=== PATIENT | female | born 1985 | race Caucasian/White ===

== ENCOUNTER → 2018-06-22 | Outpatient (CLI) | payer BC, MEDICARE, OTHER | END | disposition home or self-care (01) | LOC: LABWHC1 09:30 | PROVIDERS: ATTEND Internal Medicine Critical Care Medicine | DX: J45.909 Unspecified asthma, uncomplicated (principal) | CPT/HCPCS: 36415; 82785; 85008 ==

== ENCOUNTER → 2018-06-22 | Outpatient (CLI) | payer BC, MEDICARE, OTHER ==
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
== END | disposition home or self-care (01) ==
LOC: RADXRMAIN 09:54
PROVIDERS: ATTEND Family Medicine
DX: M54.5 Low back pain (principal)
CPT/HCPCS: 72100

== ENCOUNTER → 2018-08-24 | Outpatient (CLI) | payer BC, MEDICARE, OTHER ==
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
--- NOTE | 2018-08-24 10:58 | XR ---
EXAMINATION TYPE: XR thoracic spine complete, 4 views DATE OF EXAM: 08/24/2018 Comparison: None Clinical History: 32-year-old female with chronic pain R52 Findings: 12 rib-bearing thoracic vertebral bodies. All pedicles are visualized. Very mild endplate spondylosis midthoracic spine. Vertebral body heights are preserved and alignment is maintained. Impression: Very mild endplate spondylosis midthoracic spine. No vertebral compression collapse or malalignment.
== END | disposition home or self-care (01) ==
LOC: RADXRMAIN 09:47
PROVIDERS: ATTEND Family Medicine
DX: M47.814 Spondylosis without myelopathy or radiculopathy, thoracic region (principal); M46.82 Other specified inflammatory spondylopathies, cervical region; G89.29 Other chronic pain
CPT/HCPCS: 72050; 72072

== ENCOUNTER → 2019-10-07 | Outpatient (CLI) | payer BC, MEDICARE, OTHER ==
--- NOTE | 2019-10-07 17:12 | CT ---
EXAMINATION TYPE: CT soft tissue neck w con DATE OF EXAM: 10/07/2019 2:46 PM COMPARISON: None HISTORY: Left sided swelling marked by BB with ear pain CT DLP: 745.2 mGycm Automated exposure control for dose reduction was used. CONTRAST: CT scan of the neck is performed following with IV Contrast, patient injected with 100 mL of Isovue 3 00. Axial images are obtained, coronal and sagittal reformatted images are reviewed. FINDINGS: At the site of patient's clinical abnormality there is an overlying BB. Airway: No gross abnormality seen. Parotid/submandibular glands: No gross abnormality seen. Carotid/Vascular Structures: Osseous Structures: Other: Shotty lymph nodes are present within the bilateral neck, at the site of patient's palpable ab normality deep to the sternocleidomastoid muscle posterior aspect there is some small nodes present IMPRESSION: Nonenlarged, benign-appearing lymph nodes correspond to the palpable abnormality.
== END | disposition home or self-care (01) ==
LOC: RADCTMAIN 14:20
PROVIDERS: ATTEND Otolaryngology
DX: R22.1 Localized swelling, mass and lump, neck (principal)
CPT/HCPCS: 70491; Q9967

== ENCOUNTER → 2020-05-29 | Outpatient (CLI) | payer BC, MEDICARE, OTHER ==
--- NOTE | 2020-05-29 08:15 | CT ---
EXAMINATION TYPE: CT sinus wo con DATE OF EXAM: 05/29/2020 COMPARISON: 10/07/2019 HISTORY: Facial and Left ear pain CT DLP: 514.1 mGycm. Automated Exposure Control for Dose Reduction was Utilized. TECHNIQUE: CT scan of the sinuses is performed without contrast, axial images are obtained, coronal r eformatted images are also reviewed. FINDINGS: The paranasal sinuses including the frontal, ethmoid, sphenoid, and maxillary sinuses bila terally are well-aerated without abnormal opacification. Hypoplastic frontal sinus noted. The ostiom eatal complex is patent bilaterally on the coronal images. Visualized portion of mastoid air cells show no abnormal opacification. The globes are intact bilate rally. IMPRESSION: The sinuses are clear and the ostiomeatal complex is patent bilaterally.
== END | disposition home or self-care (01) ==
LOC: RADCTMAIN 07:16
PROVIDERS: ATTEND Otolaryngology
DX: J32.9 Chronic sinusitis, unspecified (principal)
CPT/HCPCS: 70486

== ENCOUNTER → 2020-05-31 | Outpatient (CLI) | payer BC, MEDICARE, OTHER ==
--- NOTE | 2020-06-03 08:09 | CT ---
EXAMINATION TYPE: CT iac w con DATE OF EXAM: 05/31/2020 COMPARISON: None HISTORY: Mastoiditis. Pt c/o reoccurring ear infections CT DLP: 142.7 mGycm Automated exposure control for dose reduction was used. CONTRAST: CT scan of the IACs is performed with IV Contrast, patient injected with 100 mL of Isovue 300. FINDINGS: The external auditory canals are patent bilaterally. Mastoid air cells show no evidence of abnormal opacification bilaterally. The middle ear ossicles are symmetric and unremarkable. There is no evidence of suspicious surrounding soft tissue density to suggest cholesteatoma. The scutum is preserved bilaterally. The cochlea and the semicircular canals are symmetric and unremarkable. Ves tibular aqueduct and internal carotid canal appear unremarkable. Temporomandibular joints are mainta ined bilaterally. IMPRESSION: No significant abnormality seen to account for patient's symptoms.
== END | disposition home or self-care (01) ==
LOC: RADCTMAIN 15:26
PROVIDERS: ATTEND Otolaryngology
DX: H70.90 Unspecified mastoiditis, unspecified ear (principal); H92.02 Otalgia, left ear
CPT/HCPCS: 70481; Q9967

== ENCOUNTER → 2021-06-04 | Outpatient (CLI) | payer BC, MEDICARE, OTHER ==
--- NOTE | 2021-06-04 14:37 | CT ---
EXAMINATION TYPE: CT chest wo con DATE OF EXAM: 06/04/2021 COMPARISON: Prior chest CT August 24, 2013 HISTORY: SOB and cough, hx of asthma. CT DLP: 367.5 mGycm. Automated Exposure Control for Dose Reduction was Utilized. TECHNIQUE: CT scan of the thorax is performed without IV contrast. FINDINGS: LUNGS: The lungs remain grossly clear, there is no concerning parenchymal mass or nodule identified. There is no pleural effusion or pneumothorax seen. The tracheobronchial tree is patent. MEDIASTINUM: Lack of IV contrast is noted to limit evaluation for mediastinal and especially hilar ad enopathy. There are no definitive greater than 1 cm mediastinal lymph nodes. No cardiomegaly or pericardial effusion is seen. OTHER: Cholecystectomy clips are identified.. IMPRESSION: No acute or chronic pulmonary process.
== END | disposition home or self-care (01) ==
LOC: RADCTMAIN 14:01
PROVIDERS: ATTEND Internal Medicine Pulmonary Disease
DX: R06.02 Shortness of breath (principal); R05 Cough; Z87.09 Personal history of other diseases of the respiratory system
CPT/HCPCS: 71250

== ENCOUNTER → 2021-08-08 | Outpatient (CLI) | payer BC, MEDICARE, OTHER ==
--- NOTE | 2021-08-09 05:50 | MR ---
EXAMINATION TYPE: MR shoulder LT wo con DATE OF EXAM: 08/08/2021 COMPARISON: None HISTORY: Left shoulder pain and limited range of movement since 2014 Multiplanar multiecho imaging of the left shoulder without contrast. The biceps tendon is intact. Subscapularis tendon is intact. The glenoid janay appear intact. Exam li mited by patient's size and motion. The AC joint is intact. There is no significant subacromial impingement. The supraspinatus tendon wes ears intact. There is no retraction. There is no significant subacromial impingement. IMPRESSION: Negative MR scan of the left shoulder within the limitations of the exam. No evidence of rotator cuff tear.
== END | disposition home or self-care (01) ==
LOC: RADMRIMAIN 15:25
PROVIDERS: ATTEND Orthopaedic Surgery Hand Surgery
DX: M25.512 Pain in left shoulder (principal)

== ENCOUNTER → 2021-09-30 | Outpatient (CLI) | payer BC, MEDICARE, OTHER ==
--- NOTE | 2021-09-30 16:29 | CT ---
EXAMINATION TYPE: CT chest wo con DATE OF EXAM: 09/30/2021 COMPARISON: Chest CT June 04, 2021. HISTORY: Chest pain and difficulty breathing post covid. CT DLP: 399.6 mGycm. Automated Exposure Control for Dose Reduction was Utilized. TECHNIQUE: CT scan of the thorax is performed without IV contrast. FINDINGS: LUNGS: The lungs are grossly clear, there is no concerning new focal consolidation or groundglass opa city. There is no pleural effusion or pneumothorax seen. The tracheobronchial tree is patent. No n ew significant fibrotic change. MEDIASTINUM: Lack of IV contrast is noted to limit evaluation for mediastinal and especially hilar ad enopathy. There are no definitive new greater than 1 cm mediastinal lymph nodes. No cardiomegaly or pericardial effusion is seen. OTHER: Cholecystectomy clips are redemonstrated. Underlying scoliotic curvature or positioning is pre sent. IMPRESSION: No significant new acute or chronic pulmonary process. No significant change from prior C T.
== END | disposition home or self-care (01) ==
LOC: RADCTMAIN 16:05
PROVIDERS: ATTEND Internal Medicine Pulmonary Disease
DX: U09.9 Post COVID-19 condition, unspecified (principal)
CPT/HCPCS: 71250

== ENCOUNTER → 2023-09-09 | Outpatient (CLI) | payer MEDICARE, OTHER ==
--- NOTE | 2023-09-10 10:17 | CA ---
Transthoracic Echo Report Name: Bri Díaz Age: 37 Gender: F : 1985 Exam Date: 09/09/2023 14:40 Exam Location: [facility] Ht (in): 65 Wt (lb): 245 Ordering Physician: Jesús Fernandez MD Attending/Referring Phys: Outside Sales Consultant Linda Holcomb RDCS Procedure CPT: Indications: R06.00 Cardiac Hx: Technical Quality: Fair Contrast 1: Total Dose (mL): Contrast 2: Total Dose (mL): MEASUREMENTS (Male / Female) Normal Values 2D ECHO LV Diastolic Diameter PLAX 4.8 cm 4.2 - 5.9 / 3.9 - 5.3 cm LV Systolic Diameter PLAX 3.0 cm IVS Diastolic Thickness 1.3 cm 0.6 - 1.0 / 0.6 - 0.9 cm LVPW Diastolic Thickness 1.0 cm 0.6 - 1.0 / 0.6 - 0.9 cm LV Relative Wall Thickness 0.5 RV Internal Dim ED PLAX 2.9 cm LA Systolic Diameter LX 4.2 cm 3.0 - 4.0 / 2.7 - 3.8 cm LA Volume 60.9 cm??? 18 - 58 / 22 - 52 cm??? LA Volume Index 26.3 cm???/m??? 16 - 28 cm???/m??? M-MODE Aortic Root Diameter MM 2.7 cm MV E Point Septal Separation 0.6 cm DOPPLER AV Peak Velocity 163.0 cm/s AV Peak Gradient 10.6 mmHg MV Area PHT 4.1 cm??? Mitral E Point Velocity 138.6 cm/s Mitral A Point Velocity 86.9 cm/s Mitral E to A Ratio 1.6 MV Deceleration Time 184.7 ms MV E' Velocity 8.4 cm/s Mitral E to MV E' Ratio 16.6 TR Peak Velocity 288.0 cm/s TR Peak Gradient 33.2 mmHg Right Ventricular Systolic Press 38.2 mmHg FINDINGS Left Ventricle Left ventricular ejection fraction is estimated at 55-60 %. Left ventricular cavity size normal. Mildly increased septal wall thickness. Normal left ventricular wall motion. Right Ventricle Normal right ventricular size. Mild pulmonary hypertension. Right Atrium Normal right atrial size. Left Atrium Mildly increased left atrial diameter. Mildly increased left atrial volume. Mitral Valve Structurally normal mitral valve. Trace mitral regurgitation. Aortic Valve Trileaflet aortic valve. No aortic valve stenosis or regurgitation. Tricuspid Valve Structurally normal tricuspid valve. Trace to mild tricuspid regurgitation. Pulmonic Valve Structurally normal pulmonic valve. No pulmonic regurgitation. Pericardium No pericardial effusion. Aorta Normal size aortic root and proximal ascending aorta. CONCLUSIONS 1. Normal left ventricular size and systolic function 2. Trace to mild tricuspid regurgitation with mild pulmonary hypertension 3. Trace mitral regurgitation Previewed by: Dr. Ani Barrett MD (Electronically Signed) Final Date: 10 September 2023 10:16
== END | disposition home or self-care (01) ==
LOC: RADECHMAIN 14:38
PROVIDERS: ATTEND Internal Medicine
DX: I08.1 Rheumatic disorders of both mitral and tricuspid valves (principal); I27.20 Pulmonary hypertension, unspecified; R06.00 Dyspnea, unspecified
CPT/HCPCS: 93306

== ENCOUNTER → 2024-02-24 | Outpatient (CLI) | payer MEDICARE, OTHER ==
--- NOTE | 2024-02-25 10:19 | US ---
EXAMINATION TYPE: US venous doppler duplex UE RT DATE OF EXAM: 02/24/2024 COMPARISON: NONE CLINICAL INDICATION: Female, 38 years old with history of S43.431A SUPERIOR GLENOID LABRUM LESION-RUE ; Pain edema patient having surgery next week on surgery. SIDE PERFORMED: Right Limited due to some edema. Grayscale, color doppler, spectral doppler imaging performed of the deep veins of the upper extremiti es. There is normal flow, compressibility and vascular waveforms. Impression: No evidence of right upper extremity DVT.
== END | disposition home or self-care (01) ==
LOC: RADUSWWP 16:21
PROVIDERS: ATTEND Orthopaedic Surgery Sports Medicine
DX: S43.431A Superior glenoid labrum lesion of right shoulder, initial encounter (principal); R22.31 Localized swelling, mass and lump, right upper limb; X58.XXXA Exposure to other specified factors, initial encounter

== ENCOUNTER → 2024-07-25 | Outpatient (CLI) | payer MEDICARE, OTHER | LOC: CPPFTMAIN 12:53 | PROVIDERS: ATTEND Family Medicine | DX: J44.9 Chronic obstructive pulmonary disease, unspecified (principal); Z88.8 Allergy status to other drugs, medicaments and biological substances; Z88.1 Allergy status to other antibiotic agents; Z79.899 Other long term (current) drug therapy | CPT/HCPCS: 94060; 94726; 94729 ==

== ENCOUNTER → 2024-10-16 | Outpatient (CLI) | payer MEDICARE, OTHER ==
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
== END | disposition home or self-care (01) ==
LOC: RADCTMAIN 12:54
PROVIDERS: ATTEND Otolaryngology
DX: R22.1 Localized swelling, mass and lump, neck (principal)
CPT/HCPCS: 70491; Q9967

== ENCOUNTER → 2024-11-24 | Outpatient (CLI) | payer MEDICARE, OTHER ==
[2024-11-24 15:52] LABS: ALT 48 U/L (8-44); AST 20 U/L (13-35); Albumin 4.6 g/dL (3.8-4.9); Albumin/Globulin Ratio 1.44 Ratio (1.60-3.17); Alkaline Phosphatase 61 U/L (41-126); Blood Urea Nitrogen 7.6 mg/dL (9.0-27.0); Carbon Dioxide 22.8 mmol/L (21.6-31.8); Chloride 100 mmol/L (96-109); Chol/HDL Ratio 5.87 Ratio; Globulin 3.2 g/dL (1.6-3.3); Glucose 103 mg/dL (70-110); LDL Cholesterol,Calculated 221.2 mg/dL (0.0-131.0); Potassium 3.7 mmol/L (3.5-5.5); Sodium 139 mmol/L (135-145); Total Bilirubin 0.3 mg/dL (0.3-1.2); Total Protein 7.8 g/dL (6.2-8.2)
[2024-11-24 19:09] LABS: Basophils # (A) 0.06 X 10*3/uL (0.00-0.10); Basophils % (A) 0.6 %; Eosinophils # (A) 0.09 X 10*3/uL (0.04-0.35); Eosinophils % (A) 0.9 %; HCT 42.3 % (37.2-46.3); HGB 13.7 g/dL (12.0-15.0); Lymphocytes # (A) 2.79 X 10*3/uL (0.90-5.00); Lymphocytes % (A) 28.8 %; MCH 28.7 pg (27.0-32.0); MCHC 32.4 g/dL (32.0-37.0); MCV 88.7 FL (80.0-97.0); Mean Platelet Volume 11.7 FL (9.5-12.2); Monocytes # (A) 0.66 X 10*3/uL (0.20-1.00); Monocytes % (A) 6.8 %; NRBC Per 100 WBC 0 X 10*3/uL (0.00-0.01); Neutrophils # (A) 6.06 X 10*3/uL (1.80-7.70); Neutrophils % (A) 62.6 %; Platelet Count 400 X 10*3/uL (140-440); RBC 4.77 X 10*6/uL (4.10-5.20); RDW 14.5 % (11.5-14.5); WBC 9.69 X 10*3/uL (4.50-10.00)
== END | disposition home or self-care (01) ==
LOC: LABWHC1 11:02
PROVIDERS: ATTEND Internal Medicine
DX: Z00.00 Encounter for general adult medical examination without abnormal findings (principal); J45.909 Unspecified asthma, uncomplicated
CPT/HCPCS: 36415; 80053; 80061; 82103; 84443; 85025

== ENCOUNTER → 2025-01-17 | Outpatient (CLI) | payer MEDICARE, OTHER ==
--- NOTE | 2025-01-17 10:05 | US ---
EXAMINATION TYPE: US liver DATE OF EXAM: 01/17/2025 COMPARISON: CLINICAL INDICATION: Female, 39 years old with history of R74.01 ALT ELEVATION; Abnormal labs, GB rem sulma TECHNIQUE: Grayscale and color Doppler imaging of the right upper quadrant was performed. FINDINGS: EXAM MEASUREMENTS: Liver Length: 16.0 cm CBD: 0.5 cm Right Kidney: 10.1 x 5.4 x 5.6 cm Pancreas: Head and tail obscured by overlying bowel gas Liver: Slightly heterogenous and echogenic. Gallbladder: Surgically absent Evidence for sonographic Allen's sign: neg CBD: wnl Right Kidney: No hydronephrosis or masses seen, limited lower pole due to bowel gas IMPRESSION: 1. There may be mild fatty infiltration of the liver. Correlate with LFTs, low profile, and patient r isk factors. 2. Status post cholecystectomy. No biliary ductal dilatation. [facility], Workstation: [facility]ITALIntegr[facility] Digital SolutionsTAZ, 01/17/2025 10:02 AM
== END | disposition home or self-care (01) ==
LOC: RADUSWWP 09:36
PROVIDERS: ATTEND Internal Medicine
DX: R74.01 Elevation of levels of liver transaminase levels (principal); Z90.49 Acquired absence of other specified parts of digestive tract
CPT/HCPCS: 76705